=== PATIENT | male | born 1980 | race Caucasian/White ===

== ENCOUNTER 2021-04-15 22:04 | Emergency (ER) | payer OTHER ==
[~2021-04-15] VITALS: Ht 177.8 cm; Wt 106.8 kg
[~2021-04-15 22:04] MED LIST: NO HOME MEDICATIONS; NORCO 325 MG-51 TAB PO
[2021-04-15 22:19] VITALS: TEMP 97.8
[2021-04-15 23:52] VITALS: BP 169/79; PULSE 77
== END 2021-04-15 23:54 | disposition home or self-care (01) ==
LOC: COL.ER 22:04
DX: S61.412A Laceration without foreign body of left hand, initial encounter (principal); W26.8XXA Contact with other sharp object(s), not elsewhere classified, initial encounter; Y99.0 Civilian activity done for income or pay

== ENCOUNTER 2021-04-19 18:35 | Emergency (ER) | payer SELFPAY ==
[~2021-04-19] VITALS: Ht 177.8 cm; Wt 106.8 kg
[2021-04-19 19:13] VITALS: BP 148/91; PULSE 69; TEMP 98.4
== END 2021-04-19 20:13 | disposition home or self-care (01) ==
LOC: COL.ER 18:35
DX: Z48.02 Encounter for removal of sutures (principal)

== ENCOUNTER → 2021-04-30 | Outpatient (CLI) | payer SELFPAY ==
[2021-04-30 18:42] VITALS: BP 159/79; PULSE 80; TEMP 98.3
== END ==
LOC: COL.ER 17:18
DX: Z48.02 Encounter for removal of sutures (principal)